=== PATIENT | female | born 1950 | race Caucasian/White ===

== ENCOUNTER → 2016-12-08 | Outpatient (CLI) | payer MEDICARE, OTHER | END | disposition home or self-care (01) | DX: R27.0 Ataxia, unspecified (principal); G93.89 Other specified disorders of brain ==

== ENCOUNTER → 2016-12-16 | Outpatient (CLI) | payer MEDICARE, OTHER | END | disposition home or self-care (01) | LOC: PTH.S 12-12 10:15 | DX: R73.9 Hyperglycemia, unspecified (principal); G93.9 Disorder of brain, unspecified; I99.9 Unspecified disorder of circulatory system; I63.9 Cerebral infarction, unspecified ==

== ENCOUNTER → 2016-12-19 | Outpatient (CLI) | payer MEDICARE, OTHER ==
--- NOTE | ~2016-12-19 | ECH ---
Transthoracic Echocardiography Report (TTE) Demographics Patient Name HUMA ROSAS Date of Study 12/19/2016 Patient Number [id number] Visit Number [id number] Date of 1950 Room Number Accession Number [id number] Gender Female Age 66 year(s) Referring Bibiana Padilla [employer] Sherry Gould [facility] Physician Martha Zuniga MD Physician Interpreting Bettie Menchaca [employer] Support Engineer Physician MD Supervising Ordering Physician Alisha Zuniga MD, MD/P Nurse Stress Assistant Tennis Coach Conclusions Summary Technically adequate exam. The estimated left ventricular ejection fraction is 60%. Diastolic assessment reveals Grade I diastolic dysfunction. There is no evidence of patent foramen ovale or atrial septal defect by color Doppler. There is mild aortic regurgitation by color Doppler. Procedure Type of Study TTE procedure:Echo Complete SF. Procedure Date Date: 12/19/2016 Start: 01:20 PM Technical Quality: Adequate visualization Indications:CVA and Hypertension. Appropriate Use Criteria: 9 Height: 61 inches Weight: 230 pounds BSA: 2 m Rhythm: NSR HR: 62 bpm BP: 104/62 mmHg M-Mode/2D Measurements LV Diastolic Dimension: 4.77 cm LV Systolic Dimension: 2.7 cm LV Septum Diastolic: 0.9 cm LV PW Diastolic: 0.9 cm AO Root Dimension: 2.8 cm Cardiac Output: 3.7 l/min LA Dimension: 4.08 cm Cardiac Index: 1.85 l/min*m RV Diastolic Dimension: 3.75 cm LA volume index: 26 ml/m LVOT: 1.98 cm LVOT VTI: 19.4 cm RV Base: 3 cm LV Stroke volume: 59.7 ml RV Mid: 91 cm LV Stroke volume index: 29.85 ml/m TAPSE: 1.7 cm TDI-S': 12 cm/s Doppler Measurements AV Peak Velocity: 1.1 m/s MV Peak E-Wave: 0.66 m/s AV Peak Gradient: 4.84 mmHg MV Peak A-Wave: 0.74 m/s AV Mean Gradient: 2.77 mmHg MV E/A Ratio: 0.9 LVOT Peak Velocity: 0.93 m/s MV P1/2t: 60.1 msec AV Area (Continuity):2.61 cm AV P1/2t: 746.8 msec MV Deceleration Time: 165.8 msec TR Velocity:2.55 m/s MV Area (PHT): 3.66 cm TR Gradient:26.01 mmHg PV Peak Velocity: 0.79 m/s Estimated RAP:3 mmHg PV Peak Gradient: 2.47 mmHg Estimated RVSP: 29 mmHg Estimated PASP: 29.01 mmHg E' Septal Velocity: 0.05 m/s A' Septal Velocity: 0.08 m/s E' Lateral Velocity: 0.1 m/s A' Lateral Velocity: 0.09 m/s RA Area: 12.89 cm Findings Left Ventricle Normal left ventricle size and function. Diastolic assessment reveals Grade I diastolic dysfunction. Right Ventricle Normal right ventricle structure and function. Left Atrium Normal left atrial size. There is no evidence of patent foramen ovale or atrial septal defect by color Doppler. Bubble study not ordered. Right Atrium Normal right atrial size. Mitral Valve Normal mitral valve structure and function. Trivial mitral regurgitation by color Doppler. Aortic Valve The aortic valve is mildly sclerotic. There is mild aortic regurgitation by color Doppler. Tricuspid Valve Normal tricuspid valve structure and function. Mild tricuspid regurgitation by color Doppler. Normal pulmonary pressures. Pulmonic Valve The pulmonic valve is not well visualized. Pericardial Effusion No evidence of pericardial effusion. Miscellaneous Visualized portions of the aortic root and ascending aorta appear normal in size. Pleural Effusion No evidence of pleural effusion. Signature
== END | disposition home or self-care (01) ==
LOC: RAD.S 12-15 10:05 → CARD 12:45
DX: I63.9 Cerebral infarction, unspecified (principal); I35.1 Nonrheumatic aortic (valve) insufficiency; I51.89 Other ill-defined heart diseases; G45.1 Carotid artery syndrome (hemispheric)